=== PATIENT | male | born 1955 | race American Indian/Alaskan Native ===

== ENCOUNTER 2019-01-24 14:16 | Emergency (ER) | payer OTHER ==
[2019-01-24] MEDS ORDERED: NACL 0.9% 1000 ML 1,000 ML IV ONE (14:38)
--- NOTE | 2019-01-24 14:40 | Event Note ---
ED Screening Note ED Screening Note: Sent from [place] with sz since yesterday etoh w/d last drink 5 days ago had quit drinking for 6 y but family issues made him drink again thc x 1 as adult no cp no sob no headache no tremor This initial assessment/diagnostic orders/clinical plan/treatment(s) is/are subject to change based on patients health status, clinical progression and re- assessment by fellow clinical providers in the ED. Further treatment and workup at subsequent clinical providers discretion. Patient/guardian urged not to elope from the ED as their condition may be serious if not clinically assessed and managed. Initial orders include: CT labs u/a ekt C eRhan THORPE
[2019-01-24] MEDS ORDERED: IBUPROFEN PO ONE (14:41)
--- NOTE | 2019-01-24 15:03 | XRay Report ---
LEFT ANKLE, 3 views: History: left ankle pain. There is moderate lateral soft tissue swelling. A nondisplaced fracture is suspected in the distal tip of the fibula. The distal tibia and talar dome are intact. The ankle mortise is unremarkable. IMPRESSION: Nondisplaced fracture of the distal fibular tip.
[2019-01-24 15:29] LABS: Basophils % (Auto) 0.4 % (0.0-1.8); Eosinophils % (Auto) 0.3 % (0.0-4.3); Hematocrit 36.3 % (35.5-45.6); Hemoglobin 11.8 gm/dl (11.8-15.2); Lymphocytes # (Auto) 0.9 K/mm3 (1.2-5.4); Lymphocytes % (Auto) 22.4 % (13.4-35.0); Mean Corpuscular HGB Conc 33 % (32-34); Mean Corpuscular Volume 88 fl (84-94); Monocytes # (Auto) 0.4 K/mm3 (0.0-0.8); Monocytes % (Auto) 8.9 % (0.0-7.3); Platelet Count 163 K/mm3 (140-440); Red Blood Count 4.14 M/mm3 (3.65-5.03)
--- NOTE | 2019-01-24 16:09 | Cat Scan Report ---
PROCEDURE: CT HEAD/BRAIN WO CON TECHNIQUE: Computerized tomography of the head was performed without contrast material. CT DOSE LENGTH PRODUCT: 1330 3. mGy-cm. HISTORY: Seizure. COMPARISONS: None currently available. FINDINGS: There is no evidence for acute ischemia. There is no hemorrhage. There is no midline shift. There is no hydrocephalus. There is no mass. Age appropriate ritchie-white matter attenuation is noted. There is no calvarial fracture. The temporal bones demonstrate aerated mastoid air cells. The middle ears appear unremarkable. Mild to moderate mucosal thickening in both ethmoid sinuses. Globes are intact. IMPRESSION: * No acute intracranial findings. This document is electronically signed by Triston Worthy MD., Jan 24 2019 05:07:12 PM ET
[2019-01-24 17:15] LABS: Alanine Aminotransferase 8 units/L (7-56); Albumin 3.8 g/dL (3.9-5); BUN/Creatinine Ratio 10; Blood Urea Nitrogen 9 mg/dL (9-20); Calcium 9.2 mg/dL (8.4-10.2); Hemolysis Index 4
[2019-01-24 18:37] LABS: Bilirubin,Urine NEG (Negative); Blood,Urine NEG (Negative); Color,Urine Yellow (Yellow); Mucus,Urine FEW /HPF; Protein,Urine <15 mg/dL mg/dL (Negative); Urobilinogen,Urine < 2.0 mg/dL (<2.0)
[2019-01-24 18:45] LABS: Amphetamine Screen,Urine PRESUMPTIVE NEGATIVE; Benzodiazepines Screen,Urine PRESUMPTIVE NEGATIVE; Cannabinoid Screen,Urine PRESUMPTIVE NEGATIVE; Cocaine Screen,Urine PRESUMPTIVE NEGATIVE; Methadone Screen,Urine PRESUMPTIVE NEGATIVE; Opiate Screen,Urine PRESUMPTIVE NEGATIVE
--- NOTE | 2019-01-24 19:06 | Emergency Department Report ---
ED General Adult HPI - General Chief complaint: Seizure Stated complaint: SEIZURES Time Seen by Provider: 01/24/19 14:37 Source: patient Mode of arrival: Ambulatory Limitations: No Limitations - History of Present Illness Initial comments: 63-year-old male with a long history of alcohol and drug abuse, currently admitted to the [facility] detox facility for alcohol detoxification program. They have done this detoxification process. She felt a little to do what he thought may have been a seizure but is not quite sure stated he got on the bed and tried to move and said that he felt a To concentrate a little bit more than normal to hand and leg for a brief moment. This did spontaneously resolve after a matter of seconds. He was worried having had a seizure provider his extensive drug abuse history and alcohol abuse history. There is no witnessed tonic-clonic shaking, no loss of bowel or bladder. No oral trauma. No headache no visual changes, no fevers, chills, sweats, chest, palpitations, nausea, vomiting. -: Gradual Severity scale (0 -10): 3 Improves with: none Worsens with: none Associated Symptoms: denies other symptoms - Related Data Allergies Allergy/AdvReac Type Severity Reaction Status Date / Time No Known Allergies Allergy Verified 01/24/19 14:40 ED Review of Systems ROS: Stated complaint: SEIZURES Other details as noted in HPI Constitutional: denies: chills, fever Eyes: denies: eye pain, eye discharge, vision change ENT: denies: ear pain, throat pain Respiratory: denies: cough, shortness of breath, wheezing Cardiovascular: denies: chest pain, palpitations Endocrine: no symptoms reported Gastrointestinal: denies: abdominal pain, nausea, diarrhea Genitourinary: denies: urgency, dysuria Musculoskeletal: denies: back pain, joint swelling, arthralgia Skin: denies: rash, lesions Neurological: denies: headache, weakness, paresthesias Psychiatric: denies: anxiety, depression, auditory hallucinations, visual hallucinations Hematological/Lymphatic: denies: easy bleeding, easy bruising ED Past Medical Hx - Past Medical History Additional medical history: pt unable to state- no records sent with pt - Social History Smoking Status: Current Some Day Smoker Substance Use Type: Alcohol, Marijuana ED Physical Exam - General Limitations: No Limitations General appearance: alert, in no apparent distress - Head Head exam: Present: atraumatic, normocephalic - Eye Eye exam: Present: normal appearance - ENT ENT exam: Present: normal exam, normal orophraynx, mucous membranes moist, TM's normal bilaterally, other (no intraoral trauma) - Neck Neck exam: Present: normal inspection, full ROM. Absent: tenderness, lymphadenopathy, thyromegaly - Respiratory Respiratory exam: Present: normal lung sounds bilaterally. Absent: respiratory distress, wheezes, rales, stridor - Cardiovascular Cardiovascular Exam: Present: regular rate, normal rhythm. Absent: systolic murmur, diastolic murmur, rubs, gallop - GI/Abdominal GI/Abdominal exam: Present: soft, normal bowel sounds - Rectal Rectal exam: Present: deferred - Extremities Exam Extremities exam: Present: normal inspection - Back Exam Back exam: Present: normal inspection - Neurological Exam Neurological exam: Present: alert, oriented X3, CN II-XII intact, normal gait, other (. Romberg negative. Normal finger to nose. Normal [id number]. Gait is coordinated. Speaks in normal sentences. No ataxia. Normal short term memory.) - Psychiatric Psychiatric exam: Present: normal affect, normal mood. Absent: anxious, flat affect, manic, homicidal ideation, suicidal ideation - Skin Skin exam: Present: warm, dry, intact, normal color. Absent: rash ED Course Vital Signs 01/24/19 14:38 Temperature 97.4 F L Pulse Rate 92 H Respiratory 20 Rate Blood Pressure 138/81 [Right] O2 Sat by Pulse 98 Oximetry ED Medical Decision Making - Lab Data Result diagrams: 01/24/19 15:00 01/24/19 15:00 Critical care attestation.: If time is entered above; I have spent that time in minutes in the direct care of this critically ill patient, excluding procedure time. ED Disposition Clinical Impression: Status post alcohol detoxification, Alcohol dependency Disposition: DC-01 TO HOME OR SELFCARE Is pt being admited?: No Does the pt Need Aspirin: No Condition: Stable Instructions: Abuse of Alcohol (ED), Alcohol Withdrawal (ED), Polysubstance Abuse (ED) Referrals: JOAN BROTHERS MD [Primary Care Provider] - 3-5 Days
[2019-01-24 19:32] VITALS: BP 142/76
== END 2019-01-24 19:33 | disposition home or self-care (01) ==
LOC: ED 14:16
DX: F10.10 Alcohol abuse, uncomplicated (principal); F17.200 Nicotine dependence, unspecified, uncomplicated; F12.90 Cannabis use, unspecified, uncomplicated
CPT/HCPCS: 36415; 70450; 73610; 80053; 80156; 80164; 80185; 80307; 81001; 85025; 99285; G0480; J7030; 80320

== ENCOUNTER 2019-02-01 19:21 | Inpatient (IN) | payer OTHER ==
--- NOTE | 2019-02-01 20:15 | Cat Scan Report ---
PROCEDURE: CT HEAD/BRAIN WO CON TECHNIQUE: Computerized tomography of the head was performed without contrast material. CT DOSE LENGTH PRODUCT: 920.5 mGycm HISTORY: Altered Mental Status COMPARISONS: CT head 01/24/2019 . FINDINGS: Skull and scalp: Normal . Paranasal sinuses: Normal . Ventricles and subarachnoid spaces: Normal . Cerebrum: No evidence of hemorrhage, acute infarction or mass . There is moderate atrophy again note d Cerebellum and brainstem: No evidence of hemorrhage, acute infarction or mass . Vasculature: Normal . Other: None . ASPECTS: 10 IMPRESSION: No acute intracranial abnormality. No change. Moderate atrophy. This document is electronically signed by Gwendolyn Warren MD., February 01 2019 08:13:48 PM ET
[2019-02-01] MEDS ORDERED: KEPPRA PO ONE (20:32)
--- NOTE | 2019-02-01 20:32 | Emergency Department Report ---
ED Altered Mental Status HPI - General Chief Complaint: Altered Mental Status Stated Complaint: AMS Time Seen by Provider: 02/01/19 19:30 Source: patient, EMS, old records reviewed Mode of arrival: Ambulatory Limitations: No Limitations - History of Present Illness Initial Comments: 63-year-old male with a past medical history of dementia, seizures, alcohol, and drug abuse presents from [facility] with episodic confusion and r/o stroke. Pt is currently being treated for substance abuse. Patient is oriented to person, the fact that he is in a hospital, and the year. He is unsure of what [facility] is currently in. Patient also did not know why he was here in the hospital. Our nurse called [facility] and the nurse contacted a nurse at the [facility] facility. Apparently patient was at a day program where he was confused about the County he was currently in. He did however, mentioned the [facility] of his last address. Based on that patient was sent to the hospital for possible stroke. [facility] would not connect the nurse to the supervisor green [facility] department who witnessed this event for further details. Patient states he's been compliant with his medications but has not yet taken his evening dose of his seizure meds. He denies any pain. Pt sent here 01/24 from [facility] as well for a transient neurologic complaint. - Related Data Home Medications Medication Instructions Recorded Confirmed Last Taken Aspirin 1 tab PO DAILY 02/01/19 02/01/19 02/01/19 Ibuprofen [Motrin 800 MG tab] 800 mg PO Q8HR PRN 02/01/19 02/01/19 Unknown Pantoprazole [Protonix TAB] 40 mg PO DAILY 02/01/19 02/01/19 02/01/19 levETIRAcetam [Keppra TAB] 1,000 mg PO BID 02/01/19 02/01/19 02/01/19 am dose Allergies Allergy/AdvReac Type Severity Reaction Status Date / Time No Known Allergies Allergy Verified 01/24/19 14:40 ED Review of Systems ROS: Stated complaint: AMS Other details as noted in HPI ED Past Medical Hx - Past Medical History Previous Medical History?: Yes Hx GERD: Yes Additional medical history: ETOH abuse, seizures, dementia - Social History Smoking Status: Never Smoker - Medications Home Medications: Home Medications Medication Instructions Recorded Confirmed Last Taken Type Aspirin 1 tab PO DAILY 02/01/19 02/01/19 02/01/19 History Ibuprofen [Motrin 800 MG tab] 800 mg PO Q8HR PRN 02/01/19 02/01/19 Unknown H istory Pantoprazole [Protonix TAB] 40 mg PO DAILY 02/01/19 02/01/19 02/01/19 History levETIRAcetam [Keppra TAB] 1,000 mg PO BID 02/01/19 02/01/19 02/01/19 History am dose ED Physical Exam - General Limitations: No Limitations - Other Other exam information: General: No limitations, patient is alert in no acute distress Head exam: Atraumatic, normocephalic Eyes exam: Normal appearance, upils equal reactive to light, extraocular movements intact ENT: Moist mucous membrane Neck exam: Normal inspection, full range of motion, no meningismus nontender Respiratory exam: Clear to auscultation bilateral, no wheezes, rales, crackles Cardiovascular: Bradycardic regular rhythm Abdomen: Soft, nondistended, and nontender, with normal bowel sounds, no rebound, or guarding Extremity: Full range of motion normal inspection no deformity Back: Normal Inspection, full range of motion, no tenderness Neurologic: Alert, oriented x3, cranial nerves intact, no motor or sensory deficit Psychiatric: normal affect, normal mood Skin: Warm, dry, intact - Assessment Assessment Interval: Baseline - Level of Consciousness 1a. Level of Consciousness: alert/keenly responsive - LOC Questions 1b. LOC Questions: answers both correctly - LOC Command 1c. LOC Commands: performs tasks correctly - Best Gaze 2. Best Gaze: normal - Visual 3. Visual: no visual loss - Facial Palsy 4. Facial Palsy: normal symmetrical movement - Motor Arm 5a. Motor Arm Left: no drift 5b. Motor Arm Right: no drift - Motor Leg 6a. Motor Leg Left: no drift 6b. Motor Leg Right: no drift - Limb Ataxia 7. Limb Ataxia: absent - Sensory 8. Sensory: normal - Best Language 9. Best Language: no aphasia - Dysarthria 10. Dysarthria: normal - Extinction and Inattention 11. Extinction/Inattention: no abnormality - Scoring Total Score: 0 Stroke Severity: No Stroke Symptoms ED Course Vital Signs 02/01/19 02/01/19 02/01/19 19:36 19:46 19:47 Temperature 98.7 F Pulse Rate 53 L Respiratory 16 Rate Blood Pressure 149/83 149/83 O2 Sat by Pulse 99 100 100 Oximetry 02/01/19 02/01/19 02/01/19 21:00 21:30 21:46 Temperature Pulse Rate Respiratory Rate Blood Pressure 149/83 143/84 143/84 O2 Sat by Pulse 99 100 99 Oximetry 02/01/19 02/01/19 02/01/19 22:00 23:10 23:16 Temperature Pulse Rate 55 L Respiratory Rate Blood Pressure 143/84 133/78 O2 Sat by Pulse 99 98 Oximetry - Reevaluation(s) Reevaluation #1: 02/01/19 22:15 I spoke to the patient's . She spoke the patient a phone and states that he sounds normal. She also states that he is having intermittent episodes of confu crista for at least the last 2-3 years. At one point in time he was in a assisted for advanced dementia and he could not recall his 's name at that time. His symptoms have improved since then. He was under the care of Dr. Fitzpatrick neurologist and until his insurance changed a year and a half ago. Dr. Wang was no longer in his network. He needs to find a new Neurologist in network. She states that the primary care doctor states that she thinks the patient was having focal seizures as the cause of his intermittent confusion vs dementia. - Lab Data Result diagrams: 02/01/19 20:25 02/01/19 20:25 Lab Results 02/01/19 02/01/19 02/01/19 Range/Units 20:25 20:25 20:25 WBC 3.8 L (4.5-11.0) K/mm3 RBC 3.96 (3.65-5.03) M/mm3 Hgb 11.4 L (11.8-15.2) gm/dl Hct 33.9 L (35.5-45.6) % MCV 86 (84-94) fl MCH 29 (28-32) pg MCHC 34 (32-34) % RDW 18.1 H (13.2-15.2) % Plt Count 185 (140-440) K/mm3 Lymph % (Auto) 31.5 (13.4-35.0) % [place] % (Auto) 6.9 (0.0-7.3) % Eos % (Auto) 0.6 (0.0-4.3) % Baso % (Auto) 1.1 (0.0-1.8) % Lymph # 1.2 (1.2-5.4) K/mm3 [place] # 0.3 (0.0-0.8) K/mm3 Eos # 0.0 (0.0-0.4) K/mm3 Baso # 0.0 (0.0-0.1) K/mm3 Seg Neutrophils % 59.9 (40.0-70.0) % Seg Neutrophils # 2.3 (1.8-7.7) K/mm3 PT 14.0 (12.2-14.9) Sec. INR 1.02 (0.87-1.13) APTT 20.6 L (24.2-36.6) Sec. Sodium 140 (137-145) mmol/L Potassium 4.3 (3.6-5.0) mmol/L Chloride 104.7 (98-107) mmol/L Carbon Dioxide 25 (22-30) mmol/L Anion Gap 15 mmol/L BUN 10 (9-20) mg/dL Creatinine 0.8 (0.8-1.5) mg/dL Estimated GFR > 60 ml/min BUN/Creatinine Ratio 13 % Glucose 84 (75-100) mg/dL Calcium 9.0 (8.4-10.2) mg/dL Magnesium 2.10 (1.7-2.3) mg/dL Total Bilirubin 0.20 (0.1-1.2) mg/dL AST 15 (5-40) units/L ALT 7 (7-56) units/L Alkaline Phosphatase 95 (35-129) units/L Ammonia (25-60) umol/L Troponin T (0.00-0.029) ng/mL Total Protein 6.1 L (6.3-8.2) g/dL Albumin 3.5 L (3.9-5) g/dL Albumin/Globulin Ratio 1.3 % TSH (0.270-4.200) mlU/mL Free T4 (0.76-1.46) ng/dL Urine Color (Yellow) Urine Turbidity (Clear) Urine pH (5.0-7.0) Ur Specific [place] (1.003-1.030) Urine Protein (Negative) mg/dL Urine Glucose (UA) (Negative) mg/dL Urine Ketones (Negative) mg/dL Urine Blood (Negative) Urine Nitrite (Negative) Urine Bilirubin (Negative) Urine Urobilinogen (<2.0) mg/dL Ur Leukocyte Esterase (Negative) Urine WBC (Auto) (0.0-6.0) /HPF Urine RBC (Auto) (0.0-6.0) /HPF U Epithel Cells (Auto) (0-13.0) /HPF Urine Mucus /HPF Salicylates (2.8-20.0) mg/dL Urine Opiates Screen Urine Methadone Screen Acetaminophen (10.0-30.0) ug/mL Ur Barbiturates Screen Ur Phencyclidine Scrn Ur Amphetamines Screen U Benzodiazepines Scrn Urine Cocaine Screen U Marijuana (THC) Screen Drugs of Abuse Note Plasma/Serum Alcohol (0-0.07) % 02/01/19 02/01/19 02/01/19 Range/Units 20:25 20:25 20:25 WBC (4.5-11.0) K/mm3 RBC (3.65-5.03) M/mm3 Hgb (11.8-15.2) gm/dl Hct (35.5-45.6) % MCV (84-94) fl MCH (28-32) pg MCHC (32-34) % RDW (13.2-15.2) % Plt Count (140-440) K/mm3 Lymph % (Auto) (13.4-35.0) % [place] % (Auto) (0.0-7.3) % Eos % (Auto) (0.0-4.3) % Baso % (Auto) (0.0-1.8) % Lymph # (1.2-5.4) K/mm3 [place] # (0.0-0.8) K/mm3 Eos # (0.0-0.4) K/mm3 Baso # (0.0-0.1) K/mm3 Seg Neutrophils % (40.0-70.0) % Seg Neutrophils # (1.8-7.7) K/mm3 PT (12.2-14.9) Sec. INR (0.87-1.13) APTT (24.2-36.6) Sec. Sodium (137-145) mmol/L Potassium (3.6-5.0) mmol/L Chloride (98-107) mmol/L Carbon Dioxide (22-30) mmol/L Anion Gap mmol/L BUN (9-20) mg/dL Creatinine (0.8-1.5) mg/dL Estimated GFR ml/min BUN/Creatinine Ratio % Glucose (75-100) mg/dL Calcium (8.4-10.2) mg/dL Magnesium (1.7-2.3) mg/dL Total Bilirubin (0.1-1.2) mg/dL AST (5-40) units/L ALT (7-56) units/L Alkaline Phosphatase (35-129) units/L Ammonia 43.0 (25-60) umol/L Troponin T (0.00-0.029) ng/mL Total Protein (6.3-8.2) g/dL Albumin (3.9-5) g/dL Albumin/Globulin Ratio % TSH (0.270-4.200) mlU/mL Free T4 (0.76-1.46) ng/dL Urine Color (Yellow) Urine Turbidity (Clear) Urine pH (5.0-7.0) Ur Specific [place] (1.003-1.030) Urine Protein (Negative) mg/dL Urine Glucose (UA) (Negative) mg/dL Urine Ketones (Negative) mg/dL Urine Blood (Negative) Urine Nitrite (Negative) Urine Bilirubin (Negative) Urine Urobilinogen (<2.0) mg/dL Ur Leukocyte Esterase (Negative) Urine WBC (Auto) (0.0-6.0) /HPF Urine RBC (Auto) (0.0-6.0) /HPF U Epithel Cells (Auto) (0-13.0) /HPF Urine Mucus /HPF Salicylates < 0.3 L (2.8-20.0) mg/dL Urine Opiates Screen Urine Methadone Screen Acetaminophen < 5.0 L (10.0-30.0) ug/mL Ur Barbiturates Screen Ur Phencyclidine Scrn Ur Amphetamines Screen U Benzodiazepines Scrn Urine Cocaine Screen U Marijuana (THC) Screen Drugs of Abuse Note Plasma/Serum Alcohol (0-0.07) % 02/01/19 02/01/19 02/01/19 Range/Units 20:25 20:25 20:25 WBC (4.5-11.0) K/mm3 RBC (3.65-5.03) M/mm3 Hgb (11.8-15.2) gm/dl Hct (35.5-45.6) % MCV (84-94) fl MCH (28-32) pg MCHC (32-34) % RDW (13.2-15.2) % Plt Count (140-440) K/mm3 Lymph % (Auto) (13.4-35.0) % [place] % (Auto) (0.0-7.3) % Eos % (Auto) (0.0-4.3) % Baso % (Auto) (0.0-1.8) % Lymph # (1.2-5.4) K/mm3 [place] # (0.0-0.8) K/mm3 Eos # (0.0-0.4) K/mm3 Baso # (0.0-0.1) K/mm3 Seg Neutrophils % (40.0-70.0) % Seg Neutrophils # (1.8-7.7) K/mm3 PT (12.2-14.9) Sec. INR (0.87-1.13) APTT (24.2-36.6) Sec. Sodium (137-145) mmol/L Potassium (3.6-5.0) mmol/L Chloride (98-107) mmol/L Carbon Dioxide (22-30) mmol/L Anion Gap mmol/L BUN (9-20) mg/dL Creatinine (0.8-1.5) mg/dL Estimated GFR ml/min BUN/Creatinine Ratio % Glucose (75-100) mg/dL Calcium (8.4-10.2) mg/dL Magnesium (1.7-2.3) mg/dL Total Bilirubin (0.1-1.2) mg/dL AST (5-40) units/L ALT (7-56) units/L Alkaline Phosphatase (35-129) units/L Ammonia (25-60) umol/L Troponin T < 0.010 (0.00-0.029) ng/mL Total Protein (6.3-8.2) g/dL Albumin (3.9-5) g/dL Albumin/Globulin Ratio % TSH 2.730 (0.270-4.200) mlU/mL Free T4 1.14 (0.76-1.46) ng/dL Urine Color (Yellow) Urine Turbidity (Clear) Urine pH (5.0-7.0) Ur Specific [place] (1.003-1.030) Urine Protein (Negative) mg/dL Urine Glucose (UA) (Negative) mg/dL Urine Ketones (Negative) mg/dL Urine Blood (Negative) Urine Nitrite (Negative) Urine Bilirubin (Negative) Urine Urobilinogen (<2.0) mg/dL Ur Leukocyte Esterase (Negative) Urine WBC (Auto) (0.0-6.0) /HPF Urine RBC (Auto) (0.0-6.0) /HPF U Epithel Cells (Auto) (0-13.0) /HPF Urine Mucus /HPF Salicylates (2.8-20.0) mg/dL Urine Opiates Screen Urine Methadone Screen Acetaminophen (10.0-30.0) ug/mL Ur Barbiturates Screen Ur Phencyclidine Scrn Ur Amphetamines Screen U Benzodiazepines Scrn Urine Cocaine Screen U Marijuana (THC) Screen Drugs of Abuse Note Plasma/Serum Alcohol < 0.01 (0-0.07) % 02/01/19 02/01/19 02/01/19 Range/Units 21:00 21:00 22:54 WBC (4.5-11.0) K/mm3 RBC (3.65-5.03) M/mm3 Hgb (11.8-15.2) gm/dl Hct (35.5-45.6) % MCV (84-94) fl MCH (28-32) pg MCHC (32-34) % RDW (13.2-15.2) % Plt Count (140-440) K/mm3 Lymph % (Auto) (13.4-35.0) % [place] % (Auto) (0.0-7.3) % Eos % (Auto) (0.0-4.3) % Baso % (Auto) (0.0-1.8) % Lymph # (1.2-5.4) K/mm3 [place] # (0.0-0.8) K/mm3 Eos # (0.0-0.4) K/mm3 Baso # (0.0-0.1) K/mm3 Seg Neutrophils % (40.0-70.0) % Seg Neutrophils # (1.8-7.7) K/mm3 PT (12.2-14.9) Sec. INR (0.87-1.13) APTT (24.2-36.6) Sec. Sodium (137-145) mmol/L Potassium (3.6-5.0) mmol/L Chloride (98-107) mmol/L Carbon Dioxide (22-30) mmol/L Anion Gap mmol/L BUN (9-20) mg/dL Creatinine (0.8-1.5) mg/dL Estimated GFR ml/min BUN/Creatinine Ratio % Glucose (75-100) mg/dL Calcium (8.4-10.2) mg/dL Magnesium (1.7-2.3) mg/dL Total Bilirubin (0.1-1.2) mg/dL AST (5-40) units/L ALT (7-56) units/L Alkaline Phosphatase (35-129) units/L Ammonia (25-60) umol/L Troponin T < 0.010 (0.00-0.029) ng/mL Total Protein (6.3-8.2) g/dL Albumin (3.9-5) g/dL Albumin/Globulin Ratio % TSH (0.270-4.200) mlU/mL Free T4 (0.76-1.46) ng/dL Urine Color Straw (Yellow) Urine Turbidity Clear (Clear) Urine pH 6.0 (5.0-7.0) Ur Specific [place] 1.016 (1.003-1.030) Urine Protein <15 mg/dl (Negative) mg/dL Urine Glucose (UA) Neg (Negative) mg/dL Urine Ketones Neg (Negative) mg/dL Urine Blood Neg (Negative) Urine Nitrite Neg (Negative) Urine Bilirubin Neg (Negative) Urine Urobilinogen < 2.0 (<2.0) mg/dL Ur Leukocyte Esterase Neg (Negative) Urine WBC (Auto) 1.0 (0.0-6.0) /HPF Urine RBC (Auto) 1.0 (0.0-6.0) /HPF U Epithel Cells (Auto) 1.0 (0-13.0) /HPF Urine Mucus Few /HPF Salicylates (2.8-20.0) mg/dL Urine Opiates Screen Presumptive negative Urine Methadone Screen Presumptive negative Acetaminophen (10.0-30.0) ug/mL Ur Barbiturates Screen Presumptive negative Ur Phencyclidine Scrn Presumptive negative Ur Amphetamines Screen Presumptive negative U Benzodiazepines Scrn Presumptive negative Urine Cocaine Screen Presumptive negative U Marijuana (THC) Screen Presumptive negative Drugs of Abuse Note Disclamer Plasma/Serum Alcohol (0-0.07) % - EKG Data -: EKG Interpreted by Me EKG shows normal: sinus rhythm, axis (qrs -76), QRS complexes (qrsd 98), ST-T waves (inf t inv) Rate: bradycardia (47) When compared to previous EKG there are: previous EKG unavailable - Radiology Data Radiology results: report reviewed PROCEDURE: CT HEAD/BRAIN WO CON TECHNIQUE: Computerized tomography of the head was performed without contrast material. CT DOSE LENGTH PRODUCT: 920.5 mGycm HISTORY: Altered Mental Status COMPARISONS: CT head 01/24/2019 . FINDINGS: Skull and scalp: Normal . Paranasal sinuses: Normal . Ventricles and subarachnoid spaces: Normal . Cerebrum: No evidence of hemorrhage, acute infarction or mass . There is moderate atrophy again noted Cerebellum and brainstem: No evidence of hemorrhage, acute infarction or mass . Vasculature: Normal . Other: None . ASPECTS: 10 IMPRESSION: No acute intracranial abnormality. No change. Moderate atrophy. - Medical Decision Making After discussion with rhythm with appears that patient's symptoms include some mild confusion. Upon speaking to his patient has a history of chronic intermittent confusion/memory deficits with suspected dementia versus focal seizures. He has had a MRI brain in the past. Sx ongoing for 3 years and wax and wane. Patient is currently at his baseline without any reported previous or current neurologic deficits. ED workup unremarkable with exception of abnl ekg without baseline for comparison. trop neg x2 without c/o cp. This is the second time pt has been sent for neurologic complaints from [facility]. will admit for further workup. Pt did receive his evening keppra in the ed. - Differential Diagnosis dementia, delirium, substance abuse, cva, ich, tia Critical Care Time: No Critical care attestation.: If time is entered above; I have spent that time in minutes in the direct care of this critically ill patient, excluding procedure time. ED Disposition Clinical Impression: Alcohol dependency, Status post alcohol detoxification, Transient memory loss, Seizure disorder, Abnormal EKG Disposition: 09 OP ADMIT IP TO THIS HOSP Is pt being admited?: Yes Condition: Stable Time of Disposition: 00:39 (Dr Gonzalez/hosp)
[2019-02-01 20:52] LABS: Basophils % (Auto) 1.1 % (0.0-1.8); Eosinophils % (Auto) 0.6 % (0.0-4.3); Hematocrit 33.9 % (35.5-45.6); Hemoglobin 11.4 gm/dl (11.8-15.2); Lymphocytes # (Auto) 1.2 K/mm3 (1.2-5.4); Lymphocytes % (Auto) 31.5 % (13.4-35.0); Mean Corpuscular HGB Conc 34 % (32-34); Mean Corpuscular Volume 86 fl (84-94); Monocytes # (Auto) 0.3 K/mm3 (0.0-0.8); Monocytes % (Auto) 6.9 % (0.0-7.3); Platelet Count 185 K/mm3 (140-440); Red Blood Count 3.96 M/mm3 (3.65-5.03); Red Cell Distribution Width 18.1 % (13.2-15.2)
[2019-02-01 21:03] LABS: INR 1.02 (0.87-1.13)
[2019-02-01 21:04] LABS: Partial Thromboplastin Time 20.6 Sec. (24.2-36.6)
[2019-02-01 21:08] LABS: Alanine Aminotransferase 7 units/L (7-56); Albumin 3.5 g/dL (3.9-5); BUN/Creatinine Ratio 13; Blood Urea Nitrogen 10 mg/dL (9-20); Hemolysis Index 23
[2019-02-01 21:19] LABS: Free T4 (Free Thyroxine) 1.14 ng/dL (0.76-1.46)
[2019-02-01 21:26] LABS: Bilirubin,Urine NEG (Negative); Blood,Urine NEG (Negative); Color,Urine Straw (Yellow); Mucus,Urine FEW /HPF; Protein,Urine <15 mg/dL mg/dL (Negative); Urobilinogen,Urine < 2.0 mg/dL (<2.0)
[2019-02-01 22:22] LABS: Amphetamine Screen,Urine PRESUMPTIVE NEGATIVE; Benzodiazepines Screen,Urine PRESUMPTIVE NEGATIVE; Cannabinoid Screen,Urine PRESUMPTIVE NEGATIVE; Cocaine Screen,Urine PRESUMPTIVE NEGATIVE; Methadone Screen,Urine PRESUMPTIVE NEGATIVE; Opiate Screen,Urine PRESUMPTIVE NEGATIVE
[2019-02-02] MEDS ORDERED: TYLENOL PO PRN (01:35)
[2019-02-02] MEDS ORDERED: ZOFRAN IV PRN (01:35)
[2019-02-02] MEDS ORDERED: AMBIEN PO PRN (01:35)
[2019-02-02] MEDS ORDERED: SODIUM CHLORIDE FLUSH SYRINGE 10 ML IV PRN (01:35)
--- NOTE | 2019-02-02 01:54 | History and Physical Report ---
History of Present Illness Date of examination: 02/02/19 Chief complaint: Possible seizure History of present illness: Patient is a 63-year-old -[place] male with history of seizure disorder who was brought to the ED from [facility] on account of possible seizure activity. Patient stated that for the past 2-3 weeks that he's been having intermittent episodes of inability to talk. Each episode lasting about 2 minutes and occurring every few hours in a day. He has been on antiseizure agents for a year and admits to being compliant with his medications. He is currently at [facility] for rehabilitation for his alcohol and drug abuse. He denies headaches, nausea, vomiting, fever, chills, cough, chest pain, shortness of breath, palpitation, syncope or loss of consciousness. Past History Past Medical History: GERD, seizures, other (dementia) Past Surgical History: Other (stomach surgery) Social history: smoking (he has 25 years history of cigarette smoking. He currently smokes 1 pack every 2 days), alcohol abuse (patient is an ex-alcohol abuser. He abused alcohol for 30 years but quit 5 years ago), other (he used marijuana for 15 years and crack cocaine for 5 years but quit about 25 years ago. He denies other illicit or IV drug use) Family history: other (no known family history of hypertension, diabetes or heart disease) Medications and Allergies Allergies Allergy/AdvReac Type Severity Reaction Status Date / Time No Known Allergies Allergy Verified 01/24/19 14:40 Home Medications Medication Instructions Recorded Confirmed Last Taken Type Aspirin 1 tab PO DAILY 02/01/19 02/01/19 02/01/19 History Ibuprofen [Motrin 800 MG tab] 800 mg PO Q8HR PRN 02/01/19 02/01/19 Unknown History Pantoprazole [Protonix TAB] 40 mg PO DAILY 02/01/19 02/01/19 02/01/19 History levETIRAcetam [Keppra TAB] 1,000 mg PO BID 02/01/19 02/01/19 02/01/19 History am dose Active Meds: Active Medications Acetaminophen (Tylenol) 650 mg PO Q4H PRN PRN Reason: Pain MILD(1-3)/Fever >100.5/GILMORE Aspirin (Aspirin) 325 mg PO DAILY AVA Enoxaparin Sodium (Lovenox) 40 mg SUB-Q QDAY AVA Levetiracetam (Keppra) 1,000 mg PO BID AVA Ondansetron HCl (Zofran) 4 mg IV Q8H PRN PRN Reason: Nausea And Vomiting Oxycodone/Acetaminophen (Percocet 5/325) 1 tab PO Q6H PRN PRN Reason: Pain, Moderate (4-6) Pantoprazole Sodium (Protonix) 40 mg PO DAILY AVA Sodium Chloride (Sodium Chloride Flush Syringe 10 Ml) 10 ml IV BID AVA Sodium Chloride (Sodium Chloride Flush Syringe 10 Ml) 10 ml IV PRN PRN PRN Reason: LINE FLUSH Zolpidem Tartrate (Ambien) 5 mg PO QHS PRN PRN Reason: Insomnia Review of Systems All systems: negative (except as documented in the HPI, 14 point system reviewed were negative) Exam - Constitutional Vitals: Temp Pulse Resp BP Pulse Ox 98.7 F 53 L 16 111/62 96 02/01/19 19:47 02/02/19 01:29 02/01/19 19:47 02/02/19 01:00 02/02/19 01:00 General appearance: Present: no acute distress - EENT Eyes: Present: PERRL, EOM intact ENT: hearing intact, clear oral mucosa - Neck Neck: Present: supple - Respiratory Respiratory effort: normal Respiratory: bilateral: CTA - Cardiovascular Rhythm: regular Heart Sounds: Present: S1 & S2 - Extremities Extremities: No edema Peripheral Pulses: within normal limits - Abdominal General gastrointestinal: Present: soft, non-tender, non-distended, normal bowel sounds Male genitourinary: Present: deferred - Integumentary Integumentary: Present: clear, warm, dry - Musculoskeletal Musculoskeletal: strength equal bilaterally - Psychiatric Psychiatric: appropriate mood/affect, intact judgment & insight - Neurologic Neurologic: CNII-XII intact, moves all extremities Results - Labs CBC & Chem 7: 02/01/19 20:25 02/01/19 20:25 Labs: Laboratory Last Values WBC 3.8 K/mm3 (4.5-11.0) L 02/01/19 20:25 RBC 3.96 M/mm3 (3.65-5.03) 02/01/19 20:25 Hgb 11.4 gm/dl (11.8-15.2) L 02/01/19 20:25 Hct 33.9 % (35.5-45.6) L 02/01/19 20:25 MCV 86 fl (84-94) 02/01/19 20:25 MCH 29 pg (28-32) 02/01/19 20:25 MCHC 34 % (32-34) 02/01/19 20:25 RDW 18.1 % (13.2-15.2) H 02/01/19 20:25 Plt Count 185 K/mm3 (140-440) 02/01/19 20:25 Lymph % (Auto) 31.5 % (13.4-35.0) 02/01/19 20:25 [place] % (Auto) 6.9 % (0.0-7.3) 02/01/19 20:25 Eos % (Auto) 0.6 % (0.0-4.3) 02/01/19 20:25 Baso % (Auto) 1.1 % (0.0-1.8) 02/01/19 20:25 Lymph # 1.2 K/mm3 (1.2-5.4) 02/01/19 20:25 [place] # 0.3 K/mm3 (0.0-0.8) 02/01/19 20:25 Eos # 0.0 K/mm3 (0.0-0.4) 02/01/19 20:25 Baso # 0.0 K/mm3 (0.0-0.1) 02/01/19 20:25 Seg Neutrophils % 59.9 % (40.0-70.0) 02/01/19 20:25 Seg Neutrophils # 2.3 K/mm3 (1.8-7.7) 02/01/19 20:25 PT 14.0 Sec. (12.2-14.9) 02/01/19 20:25 INR 1.02 (0.87-1.13) 02/01/19 20:25 APTT 20.6 Sec. (24.2-36.6) L 02/01/19 20:25 Sodium 140 mmol/L (137-145) 02/01/19 20:25 Potassium 4.3 mmol/L (3.6-5.0) 02/01/19 20:25 Chloride 104.7 mmol/L (98-107) 02/01/19 20:25 Carbon Dioxide 25 mmol/L (22-30) 02/01/19 20:25 15 mmol/L 02/01/19 20:25 BUN 10 mg/dL (9-20) 02/01/19 20:25 0.8 mg/dL (0.8-1.5) 02/01/19 20:25 Estimated GFR > 60 ml/min 02/01/19 20:25 13 % 02/01/19 20:25 Glucose 84 mg/dL (75-100) 02/01/19 20:25 Calcium 9.0 mg/dL (8.4-10.2) 02/01/19 20:25 Magnesium 2.10 mg/dL (1.7-2.3) 02/01/19 20:25 0.20 mg/dL (0.1-1.2) 02/01/19 20:25 AST 15 units/L (5-40) 02/01/19 20:25 ALT 7 units/L (7-56) 02/01/19 20:25 95 units/L (35-129) 02/01/19 20:25 43.0 umol/L (25-60) 02/01/19 20:25 < 0.010 ng/mL (0.00-0.029) 02/01/19 22:54 6.1 g/dL (6.3-8.2) L 02/01/19 20:25 3.5 g/dL (3.9-5) L 02/01/19 20:25 1.3 % 02/01/19 20:25 TSH 2.730 mlU/mL (0.270-4.200) 02/01/19 20:25 Free T4 1.14 ng/dL (0.76-1.46) 02/01/19 20:25 Straw (Yellow) 02/01/19 21:00 Clear (Clear) 02/01/19 21:00 6.0 (5.0-7.0) 02/01/19 21:00 Ur Specific [place] 1.016 (1.003-1.030) 02/01/19 21:00 <15 mg/dl mg/dL (Negative) 02/01/19 21:00 Neg mg/dL (Negative) 02/01/19 21:00 Neg mg/dL (Negative) 02/01/19 21:00 Neg (Negative) 02/01/19 21:00 Neg (Negative) 02/01/19 21:00 Neg (Negative) 02/01/19 21:00 < 2.0 mg/dL (<2.0) 02/01/19 21:00 Ur Leukocyte Esterase Neg (Negative) 02/01/19 21:00 1.0 /HPF (0.0-6.0) 02/01/19 21:00 1.0 /HPF (0.0-6.0) 02/01/19 21:00 U Epithel Cells (Auto) 1.0 /HPF (0-13.0) 02/01/19 21:00 Few /HPF 02/01/19 21:00 Salicylates < 0.3 mg/dL (2.8-20.0) L 02/01/19 20:25 Presumptive negative 02/01/19 21:00 Presumptive negative 02/01/19 21:00 Acetaminophen < 5.0 ug/mL (10.0-30.0) L 02/01/19 20:25 Ur Barbiturates Screen Presumptive negative 02/01/19 21:00 Ur Phencyclidine Scrn Presumptive negative 02/01/19 21:00 Ur Amphetamines Screen Presumptive negative 02/01/19 21:00 U Benzodiazepines Scrn Presumptive negative 02/01/19 21:00 Presumptive negative 02/01/19 21:00 U Marijuana (THC) Screen Presumptive negative 02/01/19 21:00 Disclamer 02/01/19 21:00 Plasma/Serum Alcohol < 0.01 % (0-0.07) 02/01/19 20:25 Assessment and Plan Assessment and plan: Possible breakthrough seizure in a known seizure disorder -We'll continue his home Keppra -Seizure precautions -CT head negative for acute findings -Neurology consulted for further evaluation Sinus bradycardia -Thyroid function tests normal -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
[2019-02-02] MEDS: KEPPRA PO SCH ×2 (09:54→21:24)
[2019-02-02] MEDS: ASPIRIN PO SCH (09:54)
[2019-02-02] MEDS: HABITROL TD SCH (09:54)
[2019-02-02] MEDS: PROTONIX PO SCH (09:54)
[2019-02-02] MEDS: SODIUM CHLORIDE FLUSH SYRINGE 10 ML IV SCH ×3 (09:55→21:26)
[2019-02-02] MEDS: LOVENOX SUB-Q SCH (09:57)
[2019-02-02] MEDS ORDERED: NON-FORMULARY (Levetiracetam [Keppra Tab] 1,000 MG) PO SCH (10:00)
--- NOTE | 2019-02-02 11:30 | Progress Note ---
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 Follow-up on current diagnosis of Seizures. No overnight events reported to me. Patient denies any chest pain, shortness breath, nausea/vomiting or severe headaches. Imaging, nursing note, chart, labs and old chart reviewed. Discussed with patient. Hospitalist Physical - Physical exam Narrative exam: Gen: thin frail, NAD, Awake, Alert, Orientated x 3 HEENT: NCAT, EOMI, PERRL, OP Clear Neck: supple, no adenopathy, no thyromegaly, no JVD CVS/Heart: RRR, normal S1S2, pulses present bilaterally Chest/Lungs: CTA B, Symmetrical chest expansion, good air entry bilaterally GI/Abdomen: soft, NTND, good bowel sounds, no guarding or rebound /Bladder: no suprapubic tenderness, no CVA or paraspinal tenderness Extermity/Skin: no c/c/e, no obvious rash MSK: FROM x 4 Neuro: CN 2-12 grossly intact, no new focal deficits Psych: calm - Constitutional Vitals: Temp Pulse Resp BP Pulse Ox 98.0 F 58 L 18 152/78 100 02/02/19 05:05 02/02/19 05:05 02/02/19 05:32 02/02/19 05:05 02/02/19 05:05 General appearance: Present: no acute distress Results - Labs CBC & Chem 7: 02/01/19 20:25 02/01/19 20:25 Labs: Laboratory Last Values WBC 3.8 K/mm3 (4.5-11.0) L 02/01/19 20:25 RBC 3.96 M/mm3 (3.65-5.03) 02/01/19 20:25 Hgb 11.4 gm/dl (11.8-15.2) L 02/01/19 20:25 Hct 33.9 % (35.5-45.6) L 02/01/19 20:25 MCV 86 fl (84-94) 02/01/19 20:25 MCH 29 pg (28-32) 02/01/19 20:25 MCHC 34 % (32-34) 02/01/19 20:25 RDW 18.1 % (13.2-15.2) H 02/01/19 20:25 Plt Count 185 K/mm3 (140-440) 02/01/19 20:25 Lymph % (Auto) 31.5 % (13.4-35.0) 02/01/19 20:25 [place] % (Auto) 6.9 % (0.0-7.3) 02/01/19 20:25 Eos % (Auto) 0.6 % (0.0-4.3) 02/01/19 20:25 Baso % (Auto) 1.1 % (0.0-1.8) 02/01/19 20:25 Lymph # 1.2 K/mm3 (1.2-5.4) 02/01/19 20:25 [place] # 0.3 K/mm3 (0.0-0.8) 02/01/19 20:25 Eos # 0.0 K/mm3 (0.0-0.4) 02/01/19 20:25 Baso # 0.0 K/mm3 (0.0-0.1) 02/01/19 20:25 Seg Neutrophils % 59.9 % (40.0-70.0) 02/01/19 20:25 Seg Neutrophils # 2.3 K/mm3 (1.8-7.7) 02/01/19 20:25 PT 14.0 Sec. (12.2-14.9) 02/01/19 20:25 INR 1.02 (0.87-1.13) 02/01/19 20:25 APTT 20.6 Sec. (24.2-36.6) L 02/01/19 20:25 Sodium 140 mmol/L (137-145) 02/01/19 20:25 Potassium 4.3 mmol/L (3.6-5.0) 06/08/19 20:25 Chloride 104.7 mmol/L (98-107) 02/01/19 20:25 Carbon Dioxide 25 mmol/L (22-30) 02/01/19 20:25 15 mmol/L 02/01/19 20:25 BUN 10 mg/dL (9-20) 02/01/19 20:25 0.8 mg/dL (0.8-1.5) 02/01/19 20:25 Estimated GFR > 60 ml/min 02/01/19 20:25 13 % 02/01/19 20:25 Glucose 84 mg/dL (75-100) 02/01/19 20:25 Calcium 9.0 mg/dL (8.4-10.2) 02/01/19 20:25 Magnesium 2.10 mg/dL (1.7-2.3) 02/01/19 20:25 0.20 mg/dL (0.1-1.2) 02/01/19 20:25 AST 15 units/L (5-40) 02/01/19 20:25 ALT 7 units/L (7-56) 02/01/19 20:25 95 units/L (35-129) 02/01/19 20:25 43.0 umol/L (25-60) 02/01/19 20:25 < 0.010 ng/mL (0.00-0.029) 02/01/19 22:54 6.1 g/dL (6.3-8.2) L 02/01/19 20:25 3.5 g/dL (3.9-5) L 02/01/19 20:25 1.3 % 02/01/19 20:25 TSH 2.730 mlU/mL (0.270-4.200) 02/01/19 20:25 Free T4 1.14 ng/dL (0.76-1.46) 02/01/19 20:25 Straw (Yellow) 02/01/19 21:00 Clear (Clear) 02/01/19 21:00 6.0 (5.0-7.0) 02/01/19 21:00 Ur Specific [place] 1.016 (1.003-1.030) 02/01/19 21:00 <15 mg/dl mg/dL (Negative) 02/01/19 21:00 Neg mg/dL (Negative) 02/01/19 21:00 Neg mg/dL (Negative) 02/01/19 21:00 Neg (Negative) 02/01/19 21:00 Neg (Negative) 02/01/19 21:00 Neg (Negative) 02/01/19 21:00 < 2.0 mg/dL (<2.0) 02/01/19 21:00 Ur Leukocyte Esterase Neg (Negative) 02/01/19 21:00 1.0 /HPF (0.0-6.0) 02/01/19 21:00 1.0 /HPF (0.0-6.0) 02/01/19 21:00 U Epithel Cells (Auto) 1.0 /HPF (0-13.0) 02/01/19 21:00 Few /HPF 02/01/19 21:00 Salicylates < 0.3 mg/dL (2.8-20.0) L 02/01/19 20:25 Presumptive negative 02/01/19 21:00 Presumptive negative 02/01/19 21:00 Acetaminophen < 5.0 ug/mL (10.0-30.0) L 02/01/19 20:25 Ur Barbiturates Screen Presumptive negative 02/01/19 21:00 Ur Phencyclidine Scrn Presumptive negative 02/01/19 21:00 Ur Amphetamines Screen Presumptive negative 02/01/19 21:00 U Benzodiazepines Scrn Presumptive negative 02/01/19 21:00 Presumptive negative 02/01/19 21:00 U Marijuana (THC) Screen Presumptive negative 02/01/19 21:00 Disclamer 02/01/19 21:00 Plasma/Serum Alcohol < 0.01 % (0-0.07) 02/01/19 20:25 Active Medications - Current Medications Current Medications: Generic Name Dose Route Start Last Admin Trade Name Freq PRN Reason Stop Dose Admin Acetaminophen 650 mg 02/02/19 01:35 Tylenol PO Q4H PRN Pain MILD(1-3)/Fever >100.5/GILMORE Aspirin 325 mg 02/02/19 10:00 02/02/19 09:54 Aspirin PO 325 mg DAILY AVA Administration Enoxaparin Sodium 40 mg 02/02/19 10:00 02/02/19 09:57 Lovenox SUB-Q 40 mg QDAY AVA Administration Levetiracetam 1,000 mg 02/02/19 10:00 02/02/19 09:54 Keppra PO 1,000 mg BID AVA Administration Nicotine 21 mg 02/02/19 10:00 02/02/19 09:54 Habitrol TD 21 mg QDAY AVA Administration Ondansetron HCl 4 mg 02/02/19 01:35 Zofran IV Q8H PRN Nausea And Vomiting Oxycodone/Acetaminophen 1 tab 02/02/19 01:35 Percocet 5/325 PO Q6H PRN Pain, Moderate (4-6) Pantoprazole Sodium 40 mg 02/02/19 10:00 02/02/19 09:54 Protonix PO 40 mg DAILY AVA Administration Sodium Chloride 10 ml 02/02/19 10:00 02/02/19 09:55 Sodium Chloride Flush Syringe 10 Ml IV 10 ml BID AVA Administration Sodium Chloride 10 ml 02/02/19 01:35 Sodium Chloride Flush Syringe 10 Ml IV PRN PRN LINE FLUSH Zolpidem Tartrate 5 mg 02/02/19 01:35 Ambien PO QHS PRN Insomnia
--- NOTE | 2019-02-02 12:49 | Progress Note ---
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 rec EEG and mRI full note dictated Objective - Vital Sign Vital Signs - 12hr 02/02/19 02/02/19 02/02/19 01:00 01:29 01:32 Temperature Pulse Rate 53 L Respiratory Rate Blood Pressure 111/62 124/73 O2 Sat by Pulse 96 100 Oximetry 02/02/19 02/02/19 02/02/19 01:40 01:50 02:00 Temperature Pulse Rate Respiratory Rate Blood Pressure 124/73 124/73 121/61 O2 Sat by Pulse 100 97 99 Oximetry 02/02/19 02/02/19 02/02/19 02:10 02:20 02:30 Temperature Pulse Rate Respiratory Rate Blood Pressure 121/61 121/61 121/61 O2 Sat by Pulse 97 98 98 Oximetry 02/02/19 02/02/19 02/02/19 02:40 02:50 03:00 Temperature Pulse Rate Respiratory Rate Blood Pressure 121/61 121/61 135/82 O2 Sat by Pulse 97 99 95 Oximetry 02/02/19 02/02/19 02/02/19 03:10 03:20 03:30 Temperature Pulse Rate Respiratory Rate Blood Pressure 135/82 135/82 135/82 O2 Sat by Pulse 97 98 98 Oximetry 02/02/19 02/02/19 02/02/19 05:05 05:32 11:27 Temperature 98.0 F 98.7 F Pulse Rate 58 L 56 L Respiratory 18 18 20 Rate Blood Pressure 152/78 146/68 O2 Sat by Pulse 100 100 Oximetry - Laboratory Findings CBC and BMP: 02/01/19 20:25 02/01/19 20:25 Abnormal Lab Findings: Abnormal Labs 02/01/19 02/01/19 02/01/19 20:25 20:25 20:25 WBC 3.8 L Hgb 11.4 L Hct 33.9 L RDW 18.1 H APTT 20.6 L Total Protein 6.1 L Albumin 3.5 L Salicylates Acetaminophen 02/01/19 02/01/19 20:25 20:25 WBC Hgb Hct RDW APTT Total Protein Albumin Salicylates < 0.3 L Acetaminophen < 5.0 L
[2019-02-02] MEDS: PERCOCET 5/325 PO PRN (20:39)
[2019-02-03] MEDS: KEPPRA PO SCH ×2 (10:12→21:02)
[2019-02-03] MEDS: PROTONIX PO SCH (10:12)
[2019-02-03] MEDS: LOVENOX SUB-Q SCH (10:13)
[2019-02-03] MEDS: HABITROL TD SCH (10:13)
[2019-02-03] MEDS: ASPIRIN PO SCH (10:13)
[2019-02-03] MEDS: SODIUM CHLORIDE FLUSH SYRINGE 10 ML IV SCH ×2 (10:14→21:03)
--- NOTE | 2019-02-03 12:07 | Consultation ---
HISTORY OF PRESENT ILLNESS: This is a 63-year-old black male who presents to the hospital with altered mental status. He presented with altered speech, confusion. He has had periods where his speech will get slurred. He will not feel right in the head, not been able to speak. He thinks he is having seizures. This is a new onset of the process. His past medical history is quite unremarkable, although he has clearly had some neurological event in his left hemisphere from looking at the CT of the head, which shows generalized atrophy in the right hemisphere and a questionable stroke in the deep white matter as well as calcifications present within the putamen. MRI scan is, however, pending. ALLERGIES: On my examination, he has no known allergies. SOCIAL HISTORY: Negative. Does not drink, does not smoke, and he has been in excellent health over the years. PHYSICAL EXAMINATION: VITAL SIGNS: Reveals his blood pressure to be 130/80, pulse rate 86, respirations 18. NEUROLOGIC: Cranial nerves 2-12 are intact. He is eating well, swallowing. Speech is good. I did not observe any seizures while I was talking to the patient. LABORATORY DATA: Review of the lab reveals his platelet count 184,000. PTT is unremarkable. PT is unremarkable. Albumin is 3.5, total protein is 6.1. The drug screen is entirely negative. MEDICATIONS: Review of medications he is taking aspirin, Motrin, Protonix, and Keppra at the b.i.d. dose. IMPRESSION AND PLAN: Generalized seizures, probably conversion to partial seizures. Recommend starting him on a different seizure medicine. Interestingly in reviewing the record about him having a history of dementia, although as well history of drug abuse with acute confusion with [place] evaluation, would recommend further assessment of this including EEG. I will continue him on the Keppra at present time. Stroke workup is pending. Carotid artery ultrasound, echocardiogram are recommended. JOB# [id number] CASSY/NTS
--- NOTE | 2019-02-03 13:46 | Progress Note ---
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 Hopefully d/c tomorrow if no more seizures. History Interval history: Patient was seen and examined. Follow-up on current diagnosis of Seizures, still with episodes of confusion and memory of events. No overnight events reported to me. Patient denies any chest pain, shortness breath, nausea/vomiting or severe headaches. Imaging, nursing note, chart, labs and old chart reviewed. Discussed with patient. Hospitalist Physical - Physical exam Narrative exam: Gen: thin frail, NAD, Awake, Alert, Orientated x 3 HEENT: NCAT, EOMI, PERRL, OP Clear Neck: supple, no adenopathy, no thyromegaly, no JVD CVS/Heart: RRR, normal S1S2, pulses present bilaterally Chest/Lungs: CTA B, Symmetrical chest expansion, good air entry bilaterally GI/Abdomen: soft, NTND, good bowel sounds, no guarding or rebound /Bladder: no suprapubic tenderness, no CVA or paraspinal tenderness Extermity/Skin: no c/c/e, no obvious rash MSK: FROM x 4 Neuro: CN 2-12 grossly intact, no new focal deficits Psych: calm - Constitutional Vitals: Temp Pulse Resp BP Pulse Ox 98.6 F 61 20 145/73 96 02/03/19 11:40 02/03/19 11:40 02/03/19 11:40 02/03/19 11:40 02/03/19 11:40 General appearance: Present: no acute distress Results - Labs CBC & Chem 7: 02/01/19 20:25 02/01/19 20:25 Labs: Laboratory Last Values WBC 3.8 K/mm3 (4.5-11.0) L 02/01/19 20:25 RBC 3.96 M/mm3 (3.65-5.03) 02/01/19 20:25 Hgb 11.4 gm/dl (11.8-15.2) L 02/01/19 20:25 Hct 33.9 % (35.5-45.6) L 02/01/19 20:25 MCV 86 fl (84-94) 02/01/19 20:25 MCH 29 pg (28-32) 02/01/19 20:25 MCHC 34 % (32-34) 02/01/19 20:25 RDW 18.1 % (13.2-15.2) H 02/01/19 20:25 Plt Count 185 K/mm3 (140-440) 02/01/19 20:25 Lymph % (Auto) 31.5 % (13.4-35.0) 02/01/19 20:25 [place] % (Auto) 6.9 % (0.0-7.3) 02/01/19 20:25 Eos % (Auto) 0.6 % (0.0-4.3) 02/01/19 20:25 Baso % (Auto) 1.1 % (0.0-1.8) 02/01/19 20: Lymph # 1.2 K/mm3 (1.2-5.4) 02/01/19 20:25 [place] # 0.3 K/mm3 (0.0-0.8) 02/01/19 20:25 Eos # 0.0 K/mm3 (0.0-0.4) 02/01/19 20:25 Baso # 0.0 K/mm3 (0.0-0.1) 02/01/19 20:25 Seg Neutrophils % 59.9 % (40.0-70.0) 02/01/19 20: Seg Neutrophils # 2.3 K/mm3 (1.8-7.7) 02/01/19 20:25 PT 14.0 Sec. (12.2-14.9) 02/01/19 20:25 INR 1.02 (0.87-1.13) 02/01/19 20:25 APTT 20.6 Sec. (24.2-36.6) L 02/01/19 20:25 Sodium 140 mmol/L (137-145) 02/01/19 20:25 Potassium 4.3 mmol/L (3.6-5.0) 02/01/19 20:25 Chloride 104.7 mmol/L (98-107) 02/01/19 20:25 Carbon Dioxide 25 mmol/L (22-30) 02/01/19 20:25 15 mmol/L 02/01/19 20:25 BUN 10 mg/dL (9-20) 02/01/19 20:25 0.8 mg/dL (0.8-1.5) 02/01/19 20:25 Estimated GFR > 60 ml/min 02/01/19 20:25 13 % 02/01/19 20:25 Glucose 84 mg/dL (75-100) 02/01/19 20:25 Calcium 9.0 mg/dL (8.4-10.2) 02/01/19 20:25 Magnesium 2.10 mg/dL (1.7-2.3) 02/01/19 20:25 0.20 mg/dL (0.1-1.2) 02/01/19 20:25 AST 15 units/L (5-40) 02/01/19 20:25 ALT 7 units/L (7-56) 02/01/19 20:25 95 units/L (35-129) 02/01/19 20:25 43.0 umol/L (25-60) 02/01/19 20:25 < 0.010 ng/mL (0.00-0.029) 02/01/19 22:54 6.1 g/dL (6.3-8.2) L 02/01/19 20:25 3.5 g/dL (3.9-5) L 02/01/19 20:25 1.3 % 02/01/19 20:25 TSH 2.730 mlU/mL (0.270-4.200) 02/01/19 20:25 Free T4 1.14 ng/dL (0.76-1.46) 02/01/19 20:25 Straw (Yellow) 02/01/19 21:00 Clear (Clear) 02/01/19 21:00 6.0 (5.0-7.0) 02/01/19 21:00 Ur Specific [place] 1.016 (1.003-1.030) 02/01/19 21:00 <15 mg/dl mg/dL (Negative) 02/01/19 21:00 Neg mg/dL (Negative) 02/01/19 21:00 Neg mg/dL (Negative) 02/01/19 21:00 Neg (Negative) 02/01/19 21:00 Neg (Negative) 02/01/19 21:00 Neg (Negative) 02/01/19 21:00 < 2.0 mg/dL (<2.0) 02/01/19 21:00 Ur Leukocyte Esterase Neg (Negative) 02/01/19 21:00 1.0 /HPF (0.0-6.0) 02/01/19 21:00 1.0 /HPF (0.0-6.0) 02/01/19 21:00 U Epithel Cells (Auto) 1.0 /HPF (0-13.0) 02/01/19 21:00 Few /HPF 02/01/19 21:00 Salicylates < 0.3 mg/dL (2.8-20.0) L 02/01/19 20:25 Presumptive negative 02/01/19 21:00 Presumptive negative 02/01/19 21:00 Acetaminophen < 5.0 ug/mL (10.0-30.0) L 02/01/19 20:25 Ur Barbiturates Screen Presumptive negative 02/01/19 21:00 Ur Phencyclidine Scrn Presumptive negative 02/01/19 21:00 Ur Amphetamines Screen Presumptive negative 02/01/19 21:00 U Benzodiazepines Scrn Presumptive negative 02/01/19 21:00 Presumptive negative 02/01/19 21:00 U Marijuana (THC) Screen Presumptive negative 02/01/19 21:00 Disclamer 02/01/19 21:00 Plasma/Serum Alcohol < 0.01 % (0-0.07) 02/01/19 20:25 Active Medications - Current Medications Current Medications: Generic Name Dose Route Start Last Admin Trade Name Freq PRN Reason Stop Dose Admin Acetaminophen 650 mg 02/02/19 01:35 Tylenol PO Q4H PRN Pain MILD(1-3)/Fever >100.5/GILMORE Aspirin 325 mg 02/02/19 10:00 02/03/19 10:13 Aspirin PO 325 mg DAILY AVA Administration Enoxaparin Sodium 40 mg 02/02/19 10:00 02/03/19 10:13 Lovenox SUB-Q 40 mg QDAY AVA Administration Levetiracetam 1,000 mg 02/02/19 10:00 02/03/19 10:12 Keppra PO 1,000 mg BID AVA Administration Nicotine 21 mg 02/02/19 10:00 02/03/19 10:13 Habitrol TD 21 mg QDAY AVA Administration Ondansetron HCl 4 mg 02/02/19 01:35 Zofran IV Q8H PRN Nausea And Vomiting Oxycodone/Acetaminophen 1 tab 02/02/19 01:35 02/02/19 20:39 Percocet 5/325 PO 1 tab Q6H PRN Administration Pain, Moderate (4-6) Pantoprazole Sodium 40 mg 02/02/19 10:00 02/03/19 10:12 Protonix PO 40 mg DAILY AVA Administration Sodium Chloride 10 ml 02/02/19 10:00 02/03/19 10:14 Sodium Chloride Flush Syringe 10 Ml IV 10 ml BID AVA Administration Sodium Chloride 10 ml 02/02/19 01:35 Sodium Chloride Flush Syringe 10 Ml IV PRN PRN LINE FLUSH Zolpidem Tartrate 5 mg 02/02/19 01:35 02/02/19 21:25 Ambien PO 5 mg QHS PRN Administration Insomnia
--- NOTE | 2019-02-03 14:07 | Consultation ---
History of Present Illness - Reason for Consult Consult date: 02/03/19 Reason for consult: Mental Health Evaluation Requesting physician: ANNIE DALY - Chief Complaint Chief complaint: "I want the seizures to stop" - History of Present Psychiatric Illness 63-year-old AA male who presented to the ER from [place] to R/O a stroke per the record. The patient was seen 01/24/2019 in the ER for possible seizure activity. Today the patient was calm and cooperative during the assessment. He stated that he has a hx of alcoholism and was sober for years before he relapsed several weeks ago. He stated that he have been to "rehab" for his alcohol abuse in the past. He is aware that excessive alcohol intake can serious health issues. He stated that he plan to stop drinking. He was asked if he would like a rehab service referral, he declined. He stated, "I will handle this on my own." He denies SI/HI's and AVH's. He denies erratic sleep and a poor appetite. He denies recreational drug use. Medications and Allergies Allergies Allergy/AdvReac Type Severity Reaction Status Date / Time No Known Allergies Allergy Verified 01/24/19 14:40 Home Medications Medication Instructions Recorded Confirmed Last Taken Type Aspirin 1 tab PO DAILY 02/01/19 02/01/19 02/01/19 History Ibuprofen [Motrin 800 MG tab] 800 mg PO Q8HR PRN 02/01/19 02/01/19 Unknown History Pantoprazole [Protonix TAB] 40 mg PO DAILY 02/01/19 02/01/19 02/01/19 History levETIRAcetam [Keppra TAB] 1,000 mg PO BID 02/01/19 02/01/19 02/01/19 History am dose Active Meds: Active Medications Acetaminophen (Tylenol) 650 mg PO Q4H PRN PRN Reason: Pain MILD(1-3)/Fever >100.5/GILMORE Aspirin (Aspirin) 325 mg PO DAILY [facility] Last Admin: 02/03/19 10:13 Dose: 325 mg Documented by: Enoxaparin Sodium (Lovenox) 40 mg SUB-Q QDAY [facility] Last Admin: 02/03/19 10:13 Dose: 40 mg Documented by: Levetiracetam (Keppra) 1,000 mg PO BID [facility] Last Admin: 02/03/19 10:12 Dose: 1,000 mg Documented by: Nicotine (Habitrol) 21 mg TD QDAY [facility] Last Admin: 02/03/19 10:13 Dose: 21 mg Documented by: Ondansetron HCl (Zofran) 4 mg IV Q8H PRN PRN Reason: Nausea And Vomiting Oxycodone/Acetaminophen (Percocet 5/325) 1 tab PO Q6H PRN PRN Reason: Pain, Moderate (4-6) Last Admin: 02/02/19 20:39 Dose: 1 tab Documented by: Pantoprazole Sodium (Protonix) 40 mg PO DAILY [facility] Last Admin: 02/03/19 10:12 Dose: 40 mg Documented by: Sodium Chloride (Sodium Chloride Flush Syringe 10 Ml) 10 ml IV BID [facility] Last Admin: 02/03/19 10:14 Dose: 10 ml Documented by: Sodium Chloride (Sodium Chloride Flush Syringe 10 Ml) 10 ml IV PRN PRN PRN Reason: LINE FLUSH Zolpidem Tartrate (Ambien) 5 mg PO QHS PRN PRN Reason: Insomnia Last Admin: 02/02/19 21:25 Dose: 5 mg Documented by: Past psychiatric history - Past Medical History Past Medical History: seizures Past Surgical History: No surgical history - past Psychiatric treatment and history psychiatric treatment history: Hx of alcoholism. Denies a fam psy hx. - Social History Social history: lives with family Mental Status Exam - Vital signs Last Vital Signs Temp 98.6 F 02/03/19 11:40 Pulse 61 02/03/19 11:40 Resp 20 02/03/19 11:40 BP 145/73 02/03/19 11:40 Pulse Ox 96 02/03/19 11:40 - Exam Narrative exam: MSE: Appearance: calm, cooperative Behavior: regular eye contact Speech: regular rate and tone Mood: "okay" Affect: congruent to mood Thought Process: linear Thought Content: denies SI/HI's and AVH's Motor Activity: sitting up in bed Cognition: A/O x3 Insight: fair Judgment: appropriate Results Result Diagrams: 02/01/19 20:25 02/01/19 20:25 All other labs normal. Assessment and Plan Assessment and plan: Impression: Hx of Alcohol Abuse. Today the patient was calm and cooperative during the assessment. Recommendation/Plan: Discussed the importance to abstain from alcohol consumption (etoh), the patent verbalized understanding. He was offered rehab service referral, the patient declined. Will staff with Dr Juan David Lorenzo.
[2019-02-03] MEDS: PERCOCET 5/325 PO PRN ×2 (15:03→21:02)
--- NOTE | 2019-02-04 08:16 | Progress Note ---
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 Objective - Vital Sign Vital Signs - 12hr 02/03/19 02/03/19 02/04/19 22:00 22:02 00:24 Temperature 97.0 F L Pulse Rate 63 Respiratory 17 18 Rate Respiratory 17 Rate [Bilateral Lower] Blood Pressure 116/63 O2 Sat by Pulse 98 Oximetry 02/04/19 06:27 Temperature 98.0 F Pulse Rate 54 L Respiratory 18 Rate Respiratory Rate [Bilateral Lower] Blood Pressure 146/83 O2 Sat by Pulse 98 Oximetry - Laboratory Findings CBC and BMP: 02/01/19 20:25 02/01/19 20:25 Abnormal Lab Findings: Abnormal Labs 02/01/19 02/01/19 02/01/19 20:25 20:25 20:25 WBC 3.8 L Hgb 11.4 L Hct 33.9 L RDW 18.1 H APTT 20.6 L Total Protein 6.1 L Albumin 3.5 L Salicylates Acetaminophen 02/01/19 02/01/19 20:25 20:25 WBC Hgb Hct RDW APTT Total Protein Albumin Salicylates < 0.3 L Acetaminophen < 5.0 L
[2019-02-04] MEDS: PERCOCET 5/325 PO PRN (11:01)
--- NOTE | 2019-02-04 12:55 | Progress Note ---
Assessment and Plan Assessment and plan: Patient is a 63-year-old -Stateless man with a history of seizure disorder, dementia, prior alcohol abuse, tobacco dependency and GERD who presented to [facility] ED from [facility] after time spent as [facility] in [place], [place] Acute on chronic Seizure disorder: treat with keppra 1000mg bid, Neurology input noted, ordered mri brain and EEG Acute encephalopathy due to the above Tobacco dependency: equal opportunity counselor on stopping Sinus bradycardia, HR 58: thyroid function tests normal, gambling monitor shows no ectopy x 24 hours, will discontinue Dementia-Stable GERD-On Protonix DVT prophylaxis with Lovenox full code Disposition: continue inpatient care, await results of EEG and MRI brain to be done History Interval history: Patient was seen and examined. Follow-up on current diagnosis of Seizures, still with episodes of confusion and memory of events. No overnight events reported to me. Patient denies any chest pain, shortness breath, nausea/vomiting or severe headaches. Imaging, nursing note, chart, labs and old chart reviewed. Discussed with patient. Hospitalist Physical - Physical exam Narrative exam: Gen: thin frail, NAD, Awake, Alert, Orientated x 3 HEENT: NCAT, EOMI, PERRL, OP Clear Neck: supple, no adenopathy, no thyromegaly, no JVD CVS/Heart: RRR, normal S1S2, pulses present bilaterally Chest/Lungs: CTA B, Symmetrical chest expansion, good air entry bilaterally GI/Abdomen: soft, NTND, good bowel sounds, no guarding or rebound /Bladder: no suprapubic tenderness, no CVA or paraspinal tenderness Extermity/Skin: no c/c/e, no obvious rash MSK: FROM x 4 Neuro: CN 2-12 grossly intact, no new focal deficits Psych: calm - Constitutional Vitals: Temp Pulse Resp BP Pulse Ox 98.5 F 58 L 19 148/77 96 02/04/19 12:23 02/04/19 12:23 02/04/19 12:23 02/04/19 12:23 02/04/19 12:23 General appearance: Present: no acute distress Results - Labs CBC & Chem 7: 02/01/19 20:25 02/01/19 20:25 Labs: Laboratory Last Values WBC 3.8 K/mm3 (4.5-11.0) L 02/01/19 20:25 RBC 3.96 M/mm3 (3.65-5.03) 02/01/19 20:25 Hgb 11.4 gm/dl (11.8-15.2) L 02/01/19 20:25 Hct 33.9 % (35.5-45.6) L 02/01/19 20:25 MCV 86 fl (84-94) 02/01/19 20:25 MCH 29 pg (28-32) 02/01/19 20:25 MCHC 34 % (32-34) 02/01/19 20:25 RDW 18.1 % (13.2-15.2) H 02/01/19 20:25 Plt Count 185 K/mm3 (140-440) 02/01/19 20:25 Lymph % (Auto) 31.5 % (13.4-35.0) 02/01/19 20:25 [place] % (Auto) 6.9 % (0.0-7.3) 02/01/19 20: Eos % (Auto) 0.6 % (0.0-4.3) 02/01/19 20: Baso % (Auto) 1.1 % (0.0-1.8) 02/01/19 20: Lymph # 1.2 K/mm3 (1.2-5.4) 02/01/19 20: [place] # 0.3 K/mm3 (0.0-0.8) 02/01/19 20: Eos # 0.0 K/mm3 (0.0-0.4) 02/01/19 20: Baso # 0.0 K/mm3 (0.0-0.1) 02/01/19 20: Seg Neutrophils % 59.9 % (40.0-70.0) 02/01/19: Seg Neutrophils # 2.3 K/mm3 (1.8-7.7) 02/01/19 20: PT 14.0 Sec. (12.2-14.9) 02/01/19 20:25 INR 1.02 (0.87-1.13) 02/01/19: APTT 20.6 Sec. (24.2-36.6) L 02/01/19 20:25 Sodium 140 mmol/L (137-145) 02/01/19 20:25 Potassium 4.3 mmol/L (3.6-5.0) 02/01/19 20:25 Chloride 104.7 mmol/L (98-107) 02/01/19 20:25 Carbon Dioxide 25 mmol/L (22-30) 02/01/19 20:25 15 mmol/L 02/01/19 20:25 BUN 10 mg/dL (9-20) 02/01/19 20:25 0.8 mg/dL (0.8-1.5) 02/01/19 20:25 Estimated GFR > 60 ml/min 02/01/19 20:25 13 % 02/01/19 20:25 Glucose 84 mg/dL (75-100) 02/01/19 20:25 Calcium 9.0 mg/dL (8.4-10.2) 02/01/19 20:25 Magnesium 2.10 mg/dL (1.7-2.3) 02/01/19 20:25 0.20 mg/dL (0.1-1.2) 02/01/19 20:25 AST 15 units/L (5-40) 02/01/19 20:25 ALT 7 units/L (7-56) 02/01/19 20:25 95 units/L (35-129) 02/01/19 20:25 43.0 umol/L (25-60) 02/01/19 20:25 < 0.010 ng/mL (0.00-0.029) 02/01/19 22:54 6.1 g/dL (6.3-8.2) L 02/01/19 20:25 3.5 g/dL (3.9-5) L 02/01/19 20:25 1.3 % 02/01/19 20:25 TSH 2.730 mlU/mL (0.270-4.200) 02/01/19 20:25 Free T4 1.14 ng/dL (0.76-1.46) 02/01/19 20:25 Straw (Yellow) 02/01/19 21:00 Clear (Clear) 02/01/19 21:00 6.0 (5.0-7.0) 02/01/19 21:00 Ur Specific [place] 1.016 (1.003-1.030) 02/01/19 21:00 <15 mg/dl mg/dL (Negative) 02/01/19 21:00 Neg mg/dL (Negative) 02/01/19 21:00 Neg mg/dL (Negative) 02/01/19 21:00 Neg (Negative) 02/01/19 21:00 Neg (Negative) 02/01/19 21:00 Neg (Negative) 02/01/19 21:00 < 2.0 mg/dL (<2.0) 02/01/19 21:00 Ur Leukocyte Esterase Neg (Negative) 02/01/19 21:00 1.0 /HPF (0.0-6.0) 02/01/19 21:00 1.0 /HPF (0.0-6.0) 02/01/19 21:00 U Epithel Cells (Auto) 1.0 /HPF (0-13.0) 02/01/19 21:00 Few /HPF 02/01/19 21:00 Salicylates < 0.3 mg/dL (2.8-20.0) L 02/01/19 20:25 Presumptive negative 02/01/19 21:00 Presumptive negative 02/01/19 21:00 Acetaminophen < 5.0 ug/mL (10.0-30.0) L 02/01/19 20:25 Ur Barbiturates Screen Presumptive negative 02/01/19 21:00 Ur Phencyclidine Scrn Presumptive negative 02/01/19 21:00 Ur Amphetamines Screen Presumptive negative 02/01/19 21:00 U Benzodiazepines Scrn Presumptive negative 02/01/19 21:00 Presumptive negative 02/01/19 21:00 U Marijuana (THC) Screen Presumptive negative 02/01/19 21:00 Disclamer 02/01/19 21:00 Plasma/Serum Alcohol < 0.01 % (0-0.07) 02/01/19 20:25 Active Medications - Current Medications Current Medications: Generic Name Dose Route Start Last Admin Trade Name Freq PRN Reason Stop Dose Admin Acetaminophen 650 mg 02/02/19 01:35 Tylenol PO Q4H PRN Pain MILD(1-3)/Fever >100.5/GILMORE Aspirin 325 mg 02/02/19 10:00 02/03/19 10:13 Aspirin PO 325 mg DAILY AVA Administration Enoxaparin Sodium 40 mg 02/02/19 10:00 02/03/19 10:13 Lovenox SUB-Q 40 mg QDAY AVA Administration Levetiracetam 1,000 mg 02/02/19 10:00 02/03/19 21:02 Keppra PO 1,000 mg BID AVA Administration Nicotine 21 mg 02/02/19 10:00 02/03/19 10:13 Habitrol TD 21 mg QDAY AVA Administration Ondansetron HCl 4 mg 02/02/19 01:35 Zofran IV Q8H PRN Nausea And Vomiting Oxycodone/Acetaminophen 1 tab 02/02/19 01:35 02/04/19 11:01 Percocet 5/325 PO 1 tab Q6H PRN Administration Pain, Moderate (4-6) Pantoprazole Sodium 40 mg 02/02/19 10:00 02/03/19 10:12 Protonix PO 40 mg DAILY AVA Administration Sodium Chloride 10 ml 02/02/19 10:00 02/03/19 21:03 Sodium Chloride Flush Syringe 10 Ml IV 10 ml BID AVA Administration Sodium Chloride 10 ml 02/02/19 01:35 Sodium Chloride Flush Syringe 10 Ml IV PRN PRN LINE FLUSH Zolpidem Tartrate 5 mg 02/02/19 01:35 02/02/19 21:25 Ambien PO 5 mg QHS PRN Administration Insomnia
--- NOTE | 2019-02-04 19:11 | Magnetic Resonance Report ---
PROCEDURE: MRI brain without contrast. TECHNIQUE: Magnetic resonance imaging of the brain was performed without contrast material. HISTORY: recurrent seizures COMPARISONS: CT head 02/01/2019. FINDINGS: There is mild cerebral atrophy. There is normal signal intensity from the ritchie matter and white matte r. There are no mass lesions. There is no intracranial hemorrhage. There are no signs of restricted d iffusion. The mastoid air cells and paranasal sinuses are grossly clear. IMPRESSION: Normal study of the brain for age. This document is electronically signed by Modesto Lewis MD., February 04 2019 07:09:10 PM ET
--- NOTE | 2019-02-04 19:19 | Magnetic Resonance Report ---
PROCEDURE: Magnetic resonance angiogram brain without contrast. TECHNIQUE: Axial 3-D [id number] MR angiography of the [place] and brain was performed. The source images were reconstructed in various views using maximum intensity projection. HISTORY: recurrent seizures COMPARISONS: None. FINDINGS: Both distal internal carotid arteries are widely patent. Both anterior cerebral arteries are patent. The anterior communicating artery is patent. Both middle cerebral arteries are patent. The posterior communicating arteries are not visible. Both distal vertebral arteries are patent. The left posterior inferior cerebellar artery is patent. The right PICA is not visible. The basilar artery is patent. B oth anterior inferior cerebellar arteries are patent. The right AICA may supply both the [place] and [place] territories. Both superior cerebellar and both posterior cerebral arteries are patent. There are no signs of aneurysm disease. There is no evidence of a vasculitis. IMPRESSION: Normal study. This document is electronically signed by Modesto Lewis MD., February 04 2019 07:17:17 PM ET
[2019-02-04] MEDS: KEPPRA PO SCH (20:02)
[2019-02-04] MEDS: ASPIRIN PO SCH (20:02)
[2019-02-04] MEDS: HABITROL TD SCH (20:02)
[2019-02-04] MEDS: PROTONIX PO SCH (20:03)
[2019-02-04] MEDS: SODIUM CHLORIDE FLUSH SYRINGE 10 ML IV SCH (20:03)
[2019-02-04] MEDS: LOVENOX SUB-Q SCH (20:03)
[2019-02-05] MEDS: KEPPRA PO SCH (09:41)
[2019-02-05] MEDS: LOVENOX SUB-Q SCH (09:41)
[2019-02-05] MEDS: PROTONIX PO SCH (09:41)
[2019-02-05] MEDS: ASPIRIN PO SCH (09:41)
[2019-02-05] MEDS: HABITROL TD SCH (09:42)
[2019-02-05] MEDS: SODIUM CHLORIDE FLUSH SYRINGE 10 ML IV SCH (09:42)
--- NOTE | 2019-02-05 13:37 | Discharge Summary ---
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 MRA of head unremarkable. Hospital course: Patient 63-year-old male was a history of seizure disorder dementia EtOH abuse was transferred from [place] to ED for seizures. Patient was placed on Keppra 1000 mg twice a day seizures were controlled. Had MRI MRA will both unremarkable. Normal exams. Patient now no evidence of encephalopathy. Alert and oriented able to tell me where he was in the transfer and have his seizures related to his alcohol. At present patient is hemodynamically stable enough to go back to [place] with current anti-seizure medications. Disposition: DC-30 STILL A PATIENT - Discharge Diagnoses (1) Alcohol dependency Status: Acute (2) Seizure disorder Status: Acute (3) Status post alcohol detoxification Status: Acute (4) Transient memory loss Status: Acute Core Measure Documentation - Palliative Care Palliative Care/ Comfort Measures: Not Applicable - Core Measures Any of the following diagnoses?: none Exam - Constitutional Vitals: Temp Pulse Resp BP Pulse Ox 98.5 F 62 19 127/75 100 02/05/19 12:12 02/05/19 12:12 02/05/19 12:12 02/05/19 12:12 02/05/19 12:12 General appearance: Present: no acute distress, well-nourished - EENT Eyes: Present: PERRL ENT: hearing intact, clear oral mucosa - Neck Neck: Present: supple, normal ROM - Respiratory Respiratory effort: normal Respiratory: bilateral: CTA - Cardiovascular Heart Sounds: Present: S1 & S2. Absent: rub, click - Extremities Extremities: pulses symmetrical, No edema Peripheral Pulses: within normal limits - Abdominal General gastrointestinal: Present: soft, non-tender, non-distended, normal bowel sounds Male genitourinary: Present: normal - Integumentary Integumentary: Present: clear, warm, dry - Musculoskeletal Musculoskeletal: gait normal, strength equal bilaterally - Psychiatric Psychiatric: appropriate mood/affect, intact judgment & insight - Neurologic Neurologic: CNII-XII intact, moves all extremities Plan Activity: fall precautions Weight Bearing Status: Weight Bear as Tolerated Diet: regular Follow up with: JOAN BROTHERS MD [Primary Care Provider] - 7 Days Prescriptions: Zolpidem [Ambien] 5 mg PO QHS PRN #30 tablet PRN Reason: Insomnia levETIRAcetam [Keppra TAB] 1,000 mg PO BID #60 tablet
[2019-02-05 18:08] VITALS: BP 150/80
== END 2019-02-05 17:25 | DRG 101 ==
LOC: ED 19:21 → 3A 02-02 01:35
PROVIDERS: ADMIT Internal Medicine; ATTEND Internal Medicine
DX: G40.909 Epilepsy, unspecified, not intractable, without status epilepticus (principal); F03.90 Unspecified dementia, unspecified severity, without behavioral disturbance, psychotic disturbance, mood disturbance, and anxiety; F10.20 Alcohol dependence, uncomplicated; K21.9 Gastro-esophageal reflux disease without esophagitis; F17.210 Nicotine dependence, cigarettes, uncomplicated; R00.1 Bradycardia, unspecified; G45.4 Transient global amnesia; Z79.82 Long term (current) use of aspirin
CPT/HCPCS: 36415; 70450; 70544; 70551; 80053; 80307; 80320; 81001; 82140; 83735; 84439; 84443; 84484; 85025; 85610; 85730; 93005; 93010; 99406; G0378; G0480; J1650

== ENCOUNTER 2020-03-04 00:14 | Emergency (ER) | payer MEDICARE ==
[2020-03-04 01:08] LABS: Basophils % (Auto) 0.9 % (0.0-1.8); Eosinophils % (Auto) 0.6 % (0.0-4.3); Hematocrit 34.7 % (35.5-45.6); Hemoglobin 11.6 gm/dl (11.8-15.2); Lymphocytes # (Auto) 1.3 K/mm3 (1.2-5.4); Lymphocytes % (Auto) 27.7 % (13.4-35.0); Mean Corpuscular HGB Conc 33 % (32-34); Mean Corpuscular Volume 93 fl (84-94); Monocytes # (Auto) 0.4 K/mm3 (0.0-0.8); Monocytes % (Auto) 7.8 % (0.0-7.3); Platelet Count 203 K/mm3 (140-440); Red Blood Count 3.74 M/mm3 (3.65-5.03); Red Cell Distribution Width 17.7 % (13.2-15.2)
[2020-03-04 01:32] LABS: Alanine Aminotransferase 8 units/L (7-56); Albumin 3.3 g/dL (3.9-5); BUN/Creatinine Ratio 11; Blood Urea Nitrogen 9 mg/dL (9-20); Calcium 8.7 mg/dL (8.4-10.2); Hemolysis Index 3
--- NOTE | 2020-03-04 04:25 | Emergency Department Report ---
ED General Adult HPI - General Chief complaint: Weakness Stated complaint: GENERAL ILLNESS Time Seen by Provider: 03/04/20 04:08 Source: patient Mode of arrival: Ambulatory Limitations: Physical Limitation, Other - History of Present Illness Initial comments: Patient is 64 years old male, nontoxic with history of alcohol abuse, dementia and seizure. Patient presented to the emergency room for evaluation of generalized weakness that has been going on for a few days. Patient currently lives in [place] for alcohol rehab. Patient stated that he has been clean for 2 weeks now. Patient is alert, oriented x3 no acute distress. Patient denied any chest pain, abdominal pain, nausea or vomiting. He also denied any fever or chills. Patient denied any suicidal or homicidal ideation. No visual or auditory hallucination. No recent seizure. - Related Data Home Medications Medication Instructions Recorded Confirmed Last Taken Aspirin 1 tab PO DAILY 02/01/19 02/01/19 02/01/19 Ibuprofen [Motrin 800 MG tab] 800 mg PO Q8HR PRN 02/01/19 02/01/19 Unknown Pantoprazole [Protonix TAB] 40 mg PO DAILY 02/01/19 02/01/19 02/01/19 Previous Rx's Medication Instructions Recorded Last Taken Type Acetaminophen [Acetaminophen TAB] 650 mg PO Q4H PRN tablet 02/05/19 Unknown Rx Nicotine [Habitrol] 21 mg TD QDAY patch 02/05/19 Unknown Rx Zolpidem [Ambien] 5 mg PO QHS PRN #30 tablet 02/05/19 Unknown Rx levETIRAcetam [Keppra TAB] 1,000 mg PO BID #60 tablet 02/05/19 Unknown Rx Allergies Allergy/AdvReac Type Severity Reaction Status Date / Time No Known Allergies Allergy Verified 01/24/19 14:40 ED Review of Systems ROS: Stated complaint: GENERAL ILLNESS Other details as noted in HPI Comment: All other systems reviewed and negative Constitutional: denies: chills, fever Respiratory: denies: cough, shortness of breath, SOB with exertion, SOB at rest, wheezing Cardiovascular: denies: chest pain Gastrointestinal: denies: abdominal pain, nausea, vomiting, diarrhea, co nstipation, hematemesis, melena, hematochezia Musculoskeletal: denies: back pain Neurological: denies: headache, weakness, numbness, paresthesias, confusion, abnormal gait ED Past Medical Hx - Past Medical History Hx Congestive Heart Failure: No Hx Diabetes: No Hx GERD: Yes Hx Asthma: No Hx COPD: No Additional medical history: ETOH abuse, seizures, dementia - Social History Smoking Status: Current Every Day Smoker Substance Use Type: None - Medications Home Medications: Home Medications Medication Instructions Recorded Confirmed Last Taken Type Aspirin 1 tab PO DAILY 02/01/19 02/01/19 02/01/19 History Ibuprofen [Motrin 800 MG tab] 800 mg PO Q8HR PRN 02/01/19 02/01/19 Unknown History Pantoprazole [Protonix TAB] 40 mg PO DAILY 02/01/19 02/01/19 02/01/19 History Acetaminophen [Acetaminophen TAB] 650 mg PO Q4H PRN tablet 02/05/19 Unknown Rx Nicotine [Habitrol] 21 mg TD QDAY patch 02/05/19 Unknown Rx Zolpidem [Ambien] 5 mg PO QHS PRN #30 tablet 02/05/19 Unknown Rx levETIRAcetam [Keppra TAB] 1,000 mg PO BID #60 tablet 02/05/19 Unknown Rx ED Physical Exam - General Limitations: Physical Limitation, Other General appearance: alert, in no apparent distress - Head Head exam: Present: atraumatic, normocephalic, normal inspection - Eye Eye exam: Present: normal appearance - ENT ENT exam: Present: normal exam, normal orophraynx, mucous membranes moist - Neck Neck exam: Present: normal inspection, full ROM. Absent: tenderness, meningismus, lymphadenopathy, thyromegaly - Respiratory Respiratory exam: Present: normal lung sounds bilaterally - Cardiovascular Cardiovascular Exam: Present: regular rate, normal rhythm, normal heart sounds - GI/Abdominal GI/Abdominal exam: Present: soft, normal bowel sounds. Absent: distended, tenderness, guarding, rebound, rigid, organomegaly, mass, bruit, pulsatile mass, hernia - Extremities Exam Extremities exam: Present: normal inspection, full ROM, normal capillary refill. Absent: tenderness, pedal edema, joint swelling, calf tenderness - Back Exam Back exam: Present: normal inspection, full ROM. Absent: CVA tenderness (R), CVA tenderness (L), muscle spasm, paraspinal tenderness, vertebral tenderness - Neurological Exam Neurological exam: Present: alert, oriented X3, CN II-XII intact, normal gait, reflexes normal. Absent: motor sensory deficit - Psychiatric Psychiatric exam: Present: normal mood. Absent: agitated, anxious, flat affect, manic, homicidal ideation, suicidal ideation - Skin Skin exam: Present: warm, intact, normal color ED Course Vital Signs 03/04/20 00:31 Temperature 98.1 F Pulse Rate 67 Respiratory 18 Rate Blood Pressure 108/78 O2 Sat by Pulse 98 Oximetry ED Medical Decision Making - Lab Data Result diagrams: 03/04/20 00:52 03/04/20 00:52 - Medical Decision Making Patient is 64 years old male, nontoxic with history of alcohol abuse, dementia and seizure. Patient presented to the emergency room for evaluation of generalized weakness that has been going on for a few days. Patient currently lives in [place] for alcohol rehab. Patient stated that he has been clean for 2 weeks now. Patient is alert, oriented x3 no acute distress. Patient denied any chest pain, abdominal pain, nausea or vomiting. He also denied any fever or chills. Patient denied any suicidal or homicidal ideation. No visual or auditory hallucination. No recent seizure. Labs reviewed and is unremarkable. Patient remained stable with stable vital signs. No evidence of stroke or any acute emergency. Patient will be sent back to [place] to follow-up with his primary care physician in the next 2 to 3 days and to return to the ER if he develop any new symptoms. Critical care attestation.: If time is entered above; I have spent that time in minutes in the direct care of this critically ill patient, excluding procedure time. ED Disposition Clinical Impression: Generalized weakness Disposition: DC-01 TO HOME OR SELFCARE Is pt being admited?: No Condition: Stable Instructions: Weakness (ED) Referrals: PRIMARY CARE, [Primary Care Provider] - 3-5 Days
[2020-03-04 04:38] LABS: Bilirubin,Urine NEG (Negative); Blood,Urine NEG (Negative); Color,Urine Yellow (Yellow); Mucus,Urine FEW /HPF; Protein,Urine <15 mg/dL mg/dL (Negative); Urobilinogen,Urine < 2.0 mg/dL (<2.0)
[2020-03-04 04:50] LABS: Amphetamine Screen,Urine PRESUMPTIVE NEGATIVE; Benzodiazepines Screen,Urine PRESUMPTIVE NEGATIVE; Cannabinoid Screen,Urine PRESUMPTIVE NEGATIVE; Cocaine Screen,Urine PRESUMPTIVE NEGATIVE; Methadone Screen,Urine PRESUMPTIVE NEGATIVE; Opiate Screen,Urine PRESUMPTIVE NEGATIVE
[2020-03-04 07:17] VITALS: BP 145/65
== END 2020-03-04 06:50 | disposition home or self-care (01) ==
LOC: ED 00:14
DX: R53.1 Weakness (principal); K21.9 Gastro-esophageal reflux disease without esophagitis; F17.200 Nicotine dependence, unspecified, uncomplicated; Z86.69 Personal history of other diseases of the nervous system and sense organs; Z79.82 Long term (current) use of aspirin; Z79.899 Other long term (current) drug therapy
CPT/HCPCS: 36415; 80053; 80307; 81001; 85025; 99283